=== PATIENT | male | born 1970 | race Caucasian/White ===

== ENCOUNTER 2024-08-06 14:30 | Emergency (ER) | payer SELFPAY ==
[2024-08-06 14:34] VITALS: BP 158/106; PULSE 114; TEMP 36.6; O2SAT 94; BMI 34.9
--- NOTE | 2024-08-06 14:53 | CT_ITS ---
The [address] [address] Patient Name: EDELMIRA NI MRN: [id number] date: 1970 Sex: M Assigned Patient Location: ER Current Patient Location: ER Accession/Order Number: [id number] Exam Date: 08/06/2024 15:57 Report Date: 08/06/2024 16:01 At the request of: MIAN CROSS Procedure: CT abdomen pelvis w con CT ABDOMEN AND PELVIS WITH INTRAVENOUS CONTRAST: CLINICAL HISTORY: Rectal bleeding COMPARISON: None TECHNIQUE: Spiral images were obtained through the abdomen and pelvis following the administration of intravenous contrast. This CT exam was performed using one or more following dose reduction techniques: Automated exposure control, adjustment of the mA and/or kV according to patient size, or use of iterative reconstruction technique. FINDINGS: Lung Bases: [Bibasilar atelectasis] Organs:Hepatic steatosis. Gallbladder portal vein pancreas spleen and adrenal glands all appear unremarkable. No enhancing renal mass or hydronephrosis. Small cyst superior pole right kidney. Aorta appears normal in caliber.[ GI: Stomach is grossly unremarkable. Small bowel appears nondilated. Appendix is normal. A lipoma is noted involving the ascending colon no colonic obstruction. Colonic diverticulosis.[ Pelvis:[Urinary bladder and prostate gland appear unremarkable.] Peritoneum/Retroperitoneum:No free air or free fluid or lymphadenopathy.[ Abd wall/Bones:Abdominal wall demonstrates no acute process. Osseous structures demonstrate degenerative change.[ CT/CT abdomen pelvis w con IMPRESSION: No acute process. Colonic diverticulosis. No CT evidence of acute diverticulitis. Impression dictated by: Naveen Hamilton Jr., D.O. 08/06/2024 4:01 PM Dictation Location: [employer] Electronically authenticated by: [id number] Y Date: 08/06/2024 16:01
--- NOTE | 2024-08-06 14:53 | ECG_ITS ---
The [facility] Test Date: 2024-08-06 Pat Name: EDELMIRA NI Department: Room: - Gender: Male Classroom Instructional Aide: : 1970 Requested By: Order Number: [id number] Reading MD: KOLE VERDUZCO M.D. Measurements Intervals [place] Rate: 103 P: 44 CA: 142 QRS: -27 QRSD: 90 T: 34 QT: 352 QTc: 411 Interpretive Statements 1120 Sinus tachycardia 5211 Minimal voltage criteria for LVH, may be normal variant 7202 Moderate left axis deviation abnormal ECG Compared to ECG 12/16/2017 11:45:14 Left ventricular hypertrophy now present Left-axis deviation now present Electronically Signed On 08-06-2024 19:52:27 EDT by KOLE VERDUZCO M.D.
--- NOTE | 2024-08-06 14:56 | ED_ITS ---
HPI HPI - General Adult General Chief complaint: GI Bleed Stated complaint: DENTAL PAIN HEADACHE BLOODY STOOL Time Seen by Provider: 08/06/24 14:41 Source: patient Mode of arrival: walk-in History of Present Illness HPI narrative: Patient is a 54-year-old male who presents to the emergency department for evaluation of multiple complaints. Patient states he has had increasing pain for several days in the left mandible where he is noted to have multiple dental caries. He states that is causing a headache to the left side of the head and he states the pain is so bad that he cannot take it and he is going to kill himself. Patient denies any specific suicidal plan. He has been evaluated for suicidal ideation in the past. He states he feels very emotional today because he just put his dog down. He further complains of rectal bleeding intermittently for a year that has never been evaluated previously because he does not have a doctor. He has never had a colonoscopy. He does not take blood thinners. Related Data Previous Rx's ?Medication ?Instructions ?Recorded amoxicillin 500 mg capsule 500 mg PO TID 10 days #30 c aps 08/06/24 ketorolac 10 mg tablet 10 mg PO TID PRN pain #10 ta bs 08/06/24 ondansetron 4 mg disintegrating 4 mg PO Q6H PRN nausea and 08/06/24 tablet vomiting #12 tabs Allergies Allergy/AdvReac Type Severity Reaction Status Date / Time No Known Drug Allergies Allergy Verified 08/06/24 14:41 Opioid HPI Opioid Management Most Recent Opioid Data: Ur Phencyclidine Scrn, (NEGATIVE) Negative Today, 15:40 Review of Systems ROS Constitutional Denies: fever or chills Ears, nose, mouth, and throat Reports: mouth pain; Denies: throat pain, throat swelling or nasal congestion Cardiovascular Denies: chest pain Respiratory Denies: shortness of breath Gastrointestinal Reports: blood in stool; Denies: abdominal pain, nausea or vomiting Genitourinary Denies: painful urination Musculoskeletal Denies: back pain Integumentary/Breast Denies: rash Neurological Reports: headache; Denies: numbness in extremities or weakness in extremities Psychiatric Reports: suicidal ideation Hematologic/Lymphatic Denies: easy bruising or easy bleeding PFSH PFSH Social History Little interest or pleasure in doing things: nearly every day Feeling down, depressed, or hopeless: nearly every day Exam Narrative Exam Narrative: Gen.: Awake, alert, in no distress Head: Normocephalic, atraumatic ENT: Moist mucous membranes, multiple dental caries with no focal abscess noted. No redness or swelling under the tongue. No trismus or drooling. No facial swelling noted. Respiratory: No respiratory distress, lungs clear bilaterally Cardio: Regular rate and rhythm Gastrointestinal: Abdomen is soft, nondistended and nontender to palpation. Rectal exam performed with Gisel Cruz RN at bedside throughout the duration of the exam. No noted hemorrhoids or rectal masses Extremities: Moves extremities equally, no injuries noted Psych: Requesting pain medication, states he would rather than feel the pain Neuro: No focal neuro deficit Skin: Warm, dry, intact Constitutional Vital Signs, click to edit/add: Last Vital Signs Temp 97.8 F 08/06/24 14:34 Pulse 114 H 08/06/24 14:34 Resp 20 08/06/24 14:34 BP 158/106 H 08/06/24 14:34 Pulse Ox 94 L 08/06/24 14:34 Course Vital Signs Vital signs: Vital Signs Temperature 97.8 F 08/06/24 14:34 Pulse Rate 114 H 08/06/24 14:34 Respiratory Rate 20 08/06/24 14:34 Blood Pressure 158/106 H 08/06/24 14:34 Pulse Oximetry 94 L 08/06/24 14:34 Temperature 97.8 F 08/06/24 14:34 Pulse Rate 114 H 08/06/24 14:34 Respiratory Rate 20 08/06/24 14:34 Blood Pressure 158/106 H 08/06/24 14:34 Pulse Oximetry 94 L 08/06/24 14:34 Medical Decision Making [facility] Narrative Medical decision making narrative: Patient was placed on psych precautions due to suicidal statement in the ER, although after making suicidal statements, he appeared to regret them, stating that he would never actually hurt himself. He was cleared by mental health counseling, no need for emergent psych transfer placement at this time. Rectal exam is benign, Hemoccult negative. Labs are otherwise stable. Patient treated with IV fluids, Toradol, dental analgesia for dental pain. He is placed on amoxicillin, Toradol and Zofran for dental pain/toothache and referred to dentistry. CT of the abdomen and pelvis is negative, no other acute process noted causing the rectal bleeding. Patient was encouraged to follow-up with a primary care provider. Return to the ER if symptoms change or worsen SHARED APC VISIT, PHYSICIAN ATTESTATION: [id number] I performed a substantive part of the MDM during the patient?s E/M visit. I personally evaluated and examined the patient. I personally made or approved the documented management plan and acknowledge its risk of complications. Medical Records Medical records reviewed: Yes I reviewed the patient's medical records Lab Data Lab results reviewed: Yes I reviewed the patient's lab results Labs: Lab Results 08/06/24 08/06/24 08/06/24 Range/Units 14:50 15:06 15:40 WBC 8.6 (4.0-11.0) 10^3/uL RBC 4.68 L (4.70-6.10) 10^6/uL Hgb 15.4 (14.0-18.0) g/dL Hct 44.1 (42.0-54.0) % MCV 94.2 H (80.0-94.0) fL MCH 32.9 (25.9-34.0) pg MCHC 34.9 (29.9-35.2) g/dL RDW 13.3 (11.0-15.0) % Plt Count 302 (150-450) 10^3/uL MPV 9.4 L (9.5-13.5) fL Neut % (Auto) 49.1 (43.0-75.0) % Lymph % (Auto) 40.8 (20.5-60.0) % [place] % (Auto) 8.3 (1.7-12.0) % Eos % (Auto) 0.8 L (0.9-7.0) % Baso % (Auto) 0.8 (0.2-2.0) % Neut # (Auto) 4.2 (1.4-6.5) 10^3/uL Lymph # (Auto) 3.5 (1.2-3.8) 10^3/uL [place] # (Auto) 0.7 (0.3-0.8) 10^3/uL Eos # (Auto) 0.1 (0.0-0.7) 10^3/uL Baso # (Auto) 0.1 (0.0-0.1) 10^3/uL Abs Immat Gran (auto) 0.02 (0.00-0.03) 10^3/uL Imm/Tot Granulo (auto) 0.2 (0.0-0.5) % PT 10.7 (9.0-11.6) sec INR 1.01 Sodium 132 L (136-145) mmol/L Potassium 3.8 (3.5-5.1) mmol/L Chloride 97 L (98-107) mmol/L Carbon Dioxide 25.0 (21.0-32.0) mmol/L Anion Gap 13.8 BUN 17.0 (7.0-18.0) mg/dL Creatinine 0.93 (0.70-1.30) mg/dL Est GFR ( Amer) >60 (>=60 mL/min/1.73m^2) Est GFR (Non-Af Amer) >60 (>=60 mL/min/1.73m^2) BUN/Creatinine Ratio 18.3 Glucose 98 (74-106) mg/dL Lactate 2.1 H* (0.4-2.0) mmol/L Calcium 8.7 (8.5-10.1) mg/dL Magnesium 2.1 (1.8-2.4) mg/dL Total Bilirubin 0.5 (0.2-1.0) mg/dL AST 16 (15-37) U/L ALT 24 (16-63) U/L Alkaline Phosphatase 74 (46-116) U/L Total Protein 7.2 (6.4-8.2) g/dL Albumin 3.7 (3.4-5.0) g/dL Globulin 3.5 g/dL Albumin/Globulin Ratio 1.1 Stool Occult Blood Negative Salicylates 4.1 (<=19.9) mg/dL Urine Opiates Screen Negative (NEGATIVE) Ur Buprenorphine Scrn Negative (NEGATIVE) Ur Oxycodone Screen Negative (NEGATIVE) Urine Methadone Screen Negative (NEGATIVE) Acetaminophen 10.0 (10.0-30.0) ug/mL Ur Barbiturates Screen Negative (NEGATIVE) U Tricyclic Antidepress Negative (NEGATIVE) Ur Phencyclidine Scrn Negative (NEGATIVE) Ur Amphetamines Screen Negative (NEGATIVE) U Methamphetamines Scrn Negative (NEGATIVE) U Benzodiazepines Scrn Negative (NEGATIVE) Urine Cocaine Screen Negative (NEGATIVE) U Cannabinoids Screen Negative (NEGATIVE) Ethanol Quant 166 mg/dL Imaging Data CT scan - abdomen: Attestation: I have reviewed the pertinent imaging results. Radiologist's impression: ITS Impressions Abdomen/Pelvis CT 08/06/24 14:53 IMPRESSION: No acute process. Colonic diverticulosis. No CT evidence of acute diverticulitis. Impression dictated by: Naveen Hamilton Jr., D.O. 08/06/2024 4:01 PM Dictation Location: [employer] Electronically authenticated by: [id number] Y Date: 08/06/2024 16:01 ECG Data Attestation: ?I have reviewed the pertinent ECG results. (Sinus tachycardia at a rate of 103, no obvious ST elevation or ectopy. EKG reviewed by attending physician) Discharge Plan Discharge Chief Complaint: GI Bleed Clinical Impression: Rectal bleeding, Toothache, Atypical face pain, Depression, Alcohol intoxication Patient Disposition: Home, Self-Care Time of Disposition Decision: 16:21 Condition: Good Prescriptions / Home Meds: New amoxicillin 500 mg capsule 500 mg PO TID 10 Days Qty: 30 0RF ketorolac 10 mg tablet 10 mg PO TID PRN (Reason: pain) Qty: 10 0RF ondansetron 4 mg tablet,disintegrating 4 mg PO Q6H PRN (Reason: nausea and vomiting) Qty: 12 0RF Print Language: Indian Instructions: Rectal Bleeding (ED), Toothache (ED) Referrals: [facility] [Physician, Behavioral Health] - 1 week Physician,Non-Staff, MD [Primary Care Provider] - 1 week
[2024-08-06 15:13] LABS: Internal Control Within Normal Limits; Occult Blood Negative
[2024-08-06 15:14] LABS: Basophils Absolute Auto 0.1 10^3/uL (0.0-0.1); Basophils Percent Auto 0.8 % (0.2-2.0); Eosinophils Absolute Auto 0.1 10^3/uL (0.0-0.7); Eosinophils Percent Auto 0.8 % (0.9-7.0); Hematocrit 44.1 % (42.0-54.0); Hemoglobin 15.4 g/dL (14.0-18.0); Immature Granulocytes Abs Auto 0.02 10^3/uL (0.00-0.03); Immature Granulocytes Pct Auto 0.2 % (0.0-0.5); Lymphocytes Absolute Auto 3.5 10^3/uL (1.2-3.8); Lymphocytes Percent Auto 40.8 % (20.5-60.0); Mean Corpuscular HGB Conc 34.9 g/dL (29.9-35.2); Mean Corpuscular Hemoglobin 32.9 pg (25.9-34.0); Mean Corpuscular Volume 94.2 fL (80.0-94.0); Mean Platelet Volume 9.4 fL (9.5-13.5); Monocytes Absolute Auto 0.7 10^3/uL (0.3-0.8); Monocytes Percent Auto 8.3 % (1.7-12.0); Neutrophils Absolute Auto 4.2 10^3/uL (1.4-6.5); Neutrophils Percent Auto 49.1 % (43.0-75.0); Platelet Count 302 10^3/uL (150-450); Red Blood Count 4.68 10^6/uL (4.70-6.10); Red Cell Distribution Width 13.3 % (11.0-15.0); White Blood Count 8.6 10^3/uL (4.0-11.0)
[2024-08-06] MEDS: ONDANSETRON PF 4 MG/2 ML VIAL IV (15:32)
[2024-08-06] MEDS: KETOROLAC TROMETHAMINE 30 MG/ML VIAL 15 MG IVP (15:32)
[2024-08-06] MEDS: BENZOCAINE 30 ML, lidocaine HCL 15 ML MM (15:33)
[2024-08-06] MEDS: 0.9 % SODIUM CHLORIDE 1,000 ML 999 ML IV (15:33)
[2024-08-06 15:39] LABS: INR 1.01; Prothrombin Time 10.7 sec (9.0-11.6)
--- NOTE | 2024-08-06 15:42 | PC.NURSE ---
hemoccult collected by PA at bedside with nurse present
[2024-08-06 15:46] LABS: Alanine Aminotransferase 24 U/L (16-63); Albumin Globulin Ratio 1.1; Albumin Level 3.7 g/dL (3.4-5.0); Alkaline Phosphatase 74 U/L (46-116); Anion Gap 13.8; Aspartate Amino Transferase 16 U/L (15-37); BUN Creatinine Ratio 18.3; Bilirubin Total 0.5 mg/dL (0.2-1.0); Calcium 8.7 mg/dL (8.5-10.1); Chloride 97 mmol/L (98-107); Estimated GFR (African America >60 (>=60 mL/min/1.73m^2); Estimated GFR (Non-African Ame >60 (>=60 mL/min/1.73m^2); Ethanol 166 mg/dL; Globulin 3.5 g/dL; Glucose 98 mg/dL (74-106); Magnesium 2.1 mg/dL (1.8-2.4); Potassium 3.8 mmol/L (3.5-5.1); Sodium 132 mmol/L (136-145); Total Protein 7.2 g/dL (6.4-8.2)
[2024-08-06 15:48] LABS: Salicylate 4.1 mg/dL (<=19.9)
[2024-08-06 15:51] LABS: Lactate/Lactic Acid 2.1 mmol/L (0.4-2.0)
[2024-08-06 16:07] LABS: Amphetamine Screen Urine NEGATIVE (NEGATIVE); Barbiturates Screen Urine NEGATIVE (NEGATIVE); Benzodiazepines Screen Urine NEGATIVE (NEGATIVE); Buprenorphine Screen Urine NEGATIVE (NEGATIVE); Cannabinoid Screen Urine NEGATIVE (NEGATIVE); Cocaine Screen Urine NEGATIVE (NEGATIVE); Methadone Screen Urine NEGATIVE (NEGATIVE); Methamphetamines Screen Urine NEGATIVE (NEGATIVE); Opiate Screen Urine NEGATIVE (NEGATIVE); Oxycodone Screen Urine NEGATIVE (NEGATIVE); Phencyclidine Screen Urine NEGATIVE (NEGATIVE); Tricyclic Antidepressant Urine NEGATIVE (NEGATIVE)
--- NOTE | 2024-08-06 16:16 | PC.NURSE ---
during triage pt was found to be very depressed. expressed having a bad day as today he had to put his dog of 20 yrs down. with Churchill scale completed and depression scale completed [facility] involved. Pt verbalized understanding and agrees. Pt admits to drinking 3 beers today and attempting suicide 4 yrs ago by drinking antifreeze. Pt expressed he is aware of how much this action hurt alot of ppl and would never do this again. 1624 Priscila from the [facility] finished talking to pt and has cleared him, states she has no safety concerns and does not need to be a 1:1. Pt can safely be d/c'd and was offered by Priscila to have a telephonic case manager from the [facility] to contact him tomorrow. Pt did not want this contact tomorrow per Priscila at [facility]. Pt will be provided with [facility] information upon d/c.
[2024-08-06 16:38] VITALS: BP 147/98; PULSE 97; O2SAT 96
== END 2024-08-06 16:44 | disposition home or self-care (01) ==
PROVIDERS: Physician Assistant; Emergency Provider Emergency Medicine
DX: K62.5 Hemorrhage of anus and rectum (principal); K08.89 Other specified disorders of teeth and supporting structures; G50.1 Atypical facial pain; R51.9 Headache, unspecified; K02.9 Dental caries, unspecified; F32.A Depression, unspecified; F10.129 Alcohol abuse with intoxication, unspecified; Y90.6 Blood alcohol level of 120-199 mg/100 ml
CPT/HCPCS: 36415; 74177; 80053; 80179; 80307; 80320; 80329; 83605; 83735; 85025; 85610; 93005; 96374; 96375; 99285; G0328; J1885; J2405; Q9967